=== PATIENT | male | born 1965 | race Caucasian/White ===

== ENCOUNTER 2019-02-05 18:46 | Inpatient (IN) | payer MEDICARE, OTHER ==
[~2019-02-05] VITALS: Ht 162.6 cm; Wt 72.1 kg
--- NOTE | 2019-02-05 18:57 | NUR ---
Note [email or web address] in EDM - 02/05/19 at 2108 by STEPHEN CAME TO THE ER C/O OF CHILLS x 2 DAYS, "I FEEL SICK, I WANT TO KILL MYSELF" +SI/HI. STATES HE WANTED TO GET AWAY FROM THE FACILITY HE STAYS AT. NO MEDICAL COMPLAINTS AT THIS TIME. NO ACUTE DISTRESS NOTED. SUICIDE PRECAUTIONS IMPLEMENTED, BELONGINGS AT NURSE STATION, SITTER AT BEDSIDE. READY FOR EVAL.
--- NOTE | 2019-02-05 18:58 | NUR ---
KENA, FROM [facility], HEARING VOICES, +SI, -HI, "I WANT TO RUN INTO TRAFFIC" ON 5150 HOLD. STATES HE WANTED TO GET AWAY FROM THE FACILITY HE STAYS AT. NO MEDICAL COMPLAINTS AT THIS TIME. NO ACUTE DISTRESS NOTED. SUICIDE PRECAUTIONS IMPLEMENTED, BELONGINGS AT NURSE STATION, SITTER AT BEDSIDE. READY FOR EVAL.
[2019-02-05 19:13] LABS: BASOPHILS # (AUTO) 0.1 /CMM (0.0-0.2); BASOPHILS % (AUTO) 0.8 % (0.0-2.0); HEMATOCRIT 35 % (39-51); LYMPHOCYTES # (AUTO) 2.3 /CMM (0.8-4.8); LYMPHOCYTES % (AUTO) 36.7 % (20.0-44.0); MEAN CORPUSCULAR HGB CONC 34 g/dl (31.0-36.0); MEAN CORPUSCULAR VOLUME 88 fL (80-96); MONOCYTES # (AUTO) 0.4 /CMM (0.1-1.30); MONOCYTES % (AUTO) 6.4 % (2.0-12.0); NEUTROPHILS # (AUTO) 3.3 /CMM (1.8-8.9); NEUTROPHILS % (AUTO) 52.1 % (43.0-81.0); PLATELET COUNT (AUTO) 196 /CMM (150-450); RED BLOOD CELL COUNT(AUTO) 3.98 MIL/uL (4.5-6.0); WHITE BLOOD COUNT (AUTO) 6.3 K/uL (4.3-11.0)
[2019-02-05 19:26] LABS: ALANINE AMINOTRANSFERASE 18 U/L (12-78); ALBUMIN 3.7 g/dL (3.4-5.0); ALCOHOL, BLOOD < 3 mg/dL (0-0); ALKALINE PHOSPHATASE 49 U/L (46-116); ASPARTATE AMINOTRANSFERASE 17 U/L (15-37); BILIRUBIN,DIRECT 0.1 mg/dL (0.0-0.2); BILIRUBIN,TOTAL 0.3 mg/dL (0.2-1.0); CALCIUM, SERUM 8.3 mg/dL (8.5-10.1); CARBON DIOXIDE 27 mmol/L (21-32); CHLORIDE 91 mmol/L (98-107); CREATININE 0.8 mg/dL (0.6-1.3); GLUCOSE 110 mg/dL (74-106); POTASSIUM 3.8 mmol/L (3.5-5.1); SALICYLATE 3.9 mg/dL (2.8-20.0); SODIUM SERUM 126 mmol/L (136-145); TOTAL PROTEIN, SERUM 6.6 g/dL (6.4-8.2); UREA NITROGEN, BLOOD 10 mg/dL (7-18)
[2019-02-05 19:34] LABS: ACETAMINOPHEN < 2 ug/ml (10-30)
[2019-02-05 19:44] LABS: APPEARANCE,URINE Clear (CLEAR); BILIRUBIN,URINE Negative (NEGATIVE); BLOOD, URINE Negative Ery/uL (NEGATIVE); COLOR,URINE Yellow (YELLOW); KETONES,URINE Trace (NEGATIVE); LEUKOCYTE ESTERASE ,URINE Negative (NEGATIVE); NITRITE, URINE Negative (NEGATIVE); PH,URINE 7.5 (5.0-8.0); PROTEIN,URINE Negative (NEGATIVE); UGLUCOSE Negative (NEGATIVE); UROBILINOGEN,URINE 0.2 EU/dL (0.2)
--- NOTE | 2019-02-05 20:24 | NUR ---
Patient is resting comfortably in bed with eyes closed. Easily aroused. VSS
[2019-02-05 20:30] VITALS: BP 137/87
--- NOTE | 2019-02-05 20:47 | NUR ---
REPORT GIVEN TO JEFRY ZHANG FOR 216B
--- NOTE | 2019-02-05 20:51 | NUR ---
PT TRANSFERRED TO UNIT VIA WC
--- NOTE | 2019-02-05 21:00 | NUR ---
GPS ADMISSION NOTE, RECEIVED PATIENT FROM [facility] PATIENT ARRIVED ON THIS UNIT AT 2100 VIA STRETCHER WITH 2 EMT ESCORTS. PATIENT ADMITTED ON A 5150 HOLD FOR DTS AND GD. PER HOLD PATIENT IS CONFUSED, PARANOID, AND HAVING DELUSIONAL THOUGHTS. PATIENT REPORTED COMMAND AUDITORY HALLUCINATION TELLING HIM TO HURT HIMSELF. PATIENT STATED, " I AM SAD RIGHT NOW, AND I'M HEARING VOICES TELLING ME JUST TO KILL MYSELF. I ALSO HEAR WITCH CRAFT IN THE HALLWAY ". PATIENT IS UNABLE TO CONTRACT FOR SAFETY AT THIS TIME. THE 5150 WAS REVIEWED AND THE DOCUMENTATION IN THE 5150 HOLD APPEARS TO REFLECT THE PRESENTATION OF THE PATIENT. UPON FACE TO FACE ASSESSMENT PATIENT IS NOTED TO BEING ANXIOUS, DISHEVELED, DISORGANIZED, DEMANDING, COOPERATIVE, PARANOID, CONFUSED, AND NEEDS REDIRECTION. PATIENT IS CURRENTLY LYING IN BED AWAKE, HAS NO S/S OR COMPLAINTS OF PAIN. PATIENT IS DISPLAYING NO S/S OF APPARENT DISTRESS. PATIENT BREATHING IS UNLABORED WITH EQUAL RISE AND FALL OF THE CHEST. PATIENT IS ALERT AND ORIENTATED X 2-3 ON ROOM AIR. PATIENT ASSISTED WITH TURING AND REPOSITIONING Q2HR AND PRN FOR COMFORT AND CIRCULATION. PATIENT HAS NO NEEDS AT THIS TIME. PATIENT DENIES SUICIDE IDEATIONS AND HOMICIDAL IDEATIONS AT THIS TIME. PATIENT SIGNED ALL PAPER WORK. PATIENT ADVISED OF HIS HOLD AND PATIENT RIGHTS BOOKLET GIVEN. PATIENT IS UNDER THE PSYCHIATRIC CARE OF DR. MILLER AND THE MEDICAL CARE OF DR BOND. PATIENT BELONGINGS WERE INVENTORIED AND CHECKED FOR CONTRABAND. ALL CONTRABAND REMOVED AND STORED IN PATIENT HALLWAY LOCKER. PATIENT ADVANCED DIRECTIVES PREFERENCE, IMMUNIZATIONS QUESTIONER, NECESSARY PAPERWORK COMPLETED. PATIENT SKIN ASSESSMENT COMPLETED. PATIENT ORIENTATED TO ROOM, FLOOR, AND STAFF WITH ALL QUESTIONS ANSWERED. PATIENT EDUCATED ON THE USE OF THE CALL ESTRADA. PATIENT BED SIDE RAILS ARE UP X 2 FOR SAFETY. PATIENT BED IS LOCKED, LOW AND I WILL CONTINUE TO MONITOR THIS PATIENT Q 15 MIN WITH THE HELP OF STAFF TO MAINTAIN SAFETY.
--- NOTE | 2019-02-05 21:14 | NUR ---
GPS RN NOTE, PERFORMED ACCU CHECK ON PATIENT WITH A BLOOD SUGAR WITH A BLOOD SUGAR RESULT OF 102. WILL CONTINUE TO MONITOR THIS PATIENT.
[2019-02-05] MEDS ORDERED: GABA-534 PO (21:27)
[2019-02-05] MEDS ORDERED: METF-440 PO (21:28)
[2019-02-05] MEDS ORDERED: DOCU100C36 PO (21:29)
[2019-02-05] MEDS ORDERED: HYDR-4384 PO (21:29)
[2019-02-05] MEDS ORDERED: MAG HYDROX/AL HYDROX/SIMETH 30 ML UDC PO PRN (21:30)
[2019-02-05] MEDS ORDERED: BLOOD SUGAR DIAGNOSTIC 1 EACH STRIP IN ONE (21:30)
[2019-02-05] MEDS ORDERED: MAGNESIUM HYDROXIDE 30 ML UDC PO PRN (21:30)
[2019-02-05] MEDS ORDERED: BENZ1TAB7 PO (21:31)
[2019-02-05] MEDS ORDERED: MELA3TAB PO (21:32)
[2019-02-05] MEDS: LORAZEPAM 0.5 MG TABLET PO PRN (22:16)
--- NOTE | 2019-02-05 22:16 | NUR ---
GPS RN NOTE, PATIENT HAS A COMPLAINT OF FEELING ANXIOUS AND IS REQUESTING ATIVAN AT THIS TIME. PATIENT VITAL SIGNS ARE STABLE. GAVE ATIVAN 0.5MG PO Q6HR PRN ORDERED. WILL REASSESS FOR ANXIETY AND I WILL CONTINUE TO MONITOR THIS PATIENT.
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
[2019-02-05] MEDS: TEMAZEPAM 7.5 MG CAPSULE PO PRN (23:43)
[2019-02-05] MEDS: ACETAMINOPHEN 325 MG TABLET PO PRN (23:43)
--- NOTE | 2019-02-05 23:43 | NUR ---
GPS RN NOTE, PATIENT HAS A COMPLAINT OF RIGHT KNEE PAIN AT 3 OUT OF 10 ON THE PAIN SCALE AND IS REQUESTING TYLENOL AT THIS TIME. PATIENT VITAL SIGNS ARE STABLE. GAVE TYLENOL 650 MG PO Q6HR PRN ORDERED. WILL REASSESS PAIN AND I WILL CONTINUE TO MONITOR THIS PATIENT.
--- NOTE | 2019-02-05 23:44 | NUR ---
GPS RN NOTE, PATIENT HAS A COMPLAINT OF NOT BEING ABLE TO SLEEP AND IS REQUESTING RESTORIL AT THIS TIME. PATIENT VITAL SIGNS ARE STABLE. GAVE RESTORIL 7.5MG 1 CAP PO HS PRN ORDERED. WILL REASSESS FOR INSOMNIA AND I WILL CONTINUE TO MONITOR THIS PATIENT.
[2019-02-06 00:03] LABS: URINE SODIUM, RANDOM 41 mmol/l (40-220)
[2019-02-06 00:15] LABS: OSMOLALITY,SERUM 260 mOS/kg (278-305)
[2019-02-06] MEDS ORDERED: HOME MED MISCELLANEOUS XX SCH (02:00)
[2019-02-06] MEDS: HYDROCODONE/APAP 5/325MG 1 EACH TABLET PO PRN ×4 (03:56→23:07)
--- NOTE | 2019-02-06 03:56 | NUR ---
GPS RN NOTE, PATIENT HAS A COMPLAINT OF LOWER BACK PAIN AT 7 OUT 10 ON THE PAIN SCALE AND IS REQUESTING NORCO AT THIS TIME. PATIENT VITAL SIGNS ARE STABLE. GAVE NORCO 5-325 1 TAB PO Q4HR PRN ORDERED. WILL REASSESS FOR PAIN AND I WILL CONTINUE TO MONITOR THIS PATIENT.
[2019-02-06 07:33] LABS: CHOLESTEROL 174 mg/dL (<200); HDL CHOLESTEROL 37 mg/dL (40-60); LDL 121 mg/dL (0-99); TRIGLYCERIDES 130 mg/dL (30-150)
[2019-02-06 07:40] LABS: CREATININE 0.8 mg/dL (0.6-1.3)
[2019-02-06 08:00] VITALS: BP 136/76
[2019-02-06] MEDS: METFORMIN 500 MG TABLET PO SCH ×2 (08:57→17:33)
[2019-02-06] MEDS: DOCUSATE SODIUM 100 MG CAPSULE PO SCH ×2 (08:57→17:33)
[2019-02-06] MEDS: NICOTINE PATCH (21MG) 21 MG PATCH.TD24 TD SCH (08:57)
[2019-02-06] MEDS: GABAPENTIN 300 MG CAPSULE PO SCH ×3 (08:57→17:33)
[2019-02-06] MEDS: LORAZEPAM 0.5 MG TABLET PO PRN ×2 (08:57→15:07)
--- NOTE | 2019-02-06 08:59 | NUR ---
RN NOTE: PATIENT STATES FEELING ANXIOUS. PRN ATIVAN GIVEN.
[2019-02-06] MEDS ORDERED: TDAP [DIPH/PERTUSSIS/TET] 0.5 ML VIAL IM ONE (09:00)
--- NOTE | 2019-02-06 10:37 | NUR ---
RN NOTE: PATIENT COMPLAINING OF 7/10 BACK PAIN. PRN NORCO GIVEN.
--- NOTE | 2019-02-06 11:01 | NUR ---
SW contacted [facility] Address: [address] [place] [address] and spoke with Pepito, primary care coordinator who stated pt is able to return once stable for discharge.
[2019-02-06 12:10] LABS: CALCIUM, SERUM 8.6 mg/dL (8.5-10.1); CREATININE 0.8 mg/dL (0.6-1.3); MAGNESIUM 1.8 mg/dL (1.8-2.4); PHOSPHORUS 2.9 mg/dL (2.5-4.9); POTASSIUM 4.2 mmol/L (3.5-5.1)
[2019-02-06 12:17] LABS: THYROID STIMULATING HORMONE 1.69 uIU/mL (0.358-3.74); URIC ACID 3.1 mg/dL (2.6-7.2)
--- NOTE | 2019-02-06 15:08 | NUR ---
RN NOTE: PATIENT COMPLAINING OF ANXIETY. PRN ATIVAN GIVEN.
--- NOTE | 2019-02-06 15:45 | NUR ---
GROUP NOTE: SW prompted pt to attend group on 02/06/19 at 2:30pm discussing conflict resolution techniques for while they are in the hospital and after discharge, but pt unable to participate in group.
[2019-02-06 16:00] VITALS: BP 133/78
[2019-02-06] MEDS: OXCARBAZEPINE 150 MG TABLET PO SCH (17:32)
[2019-02-06] MEDS: risperiDONE 1 MG TABLET PO SCH (17:33)
[2019-02-06 20:28] VITALS: BP 147/87
--- NOTE | 2019-02-06 21:00 | NUR ---
RN GPS NOTES PATIENT REQUESTED FOR SLEEPING MEDICATION DUE TO HAVING A HARD TIME SLEEP. RESTORIL 7.5MG PO GIVEN. VSS. WILL CONTINUE TO MONITOR.
[2019-02-06] MEDS: TEMAZEPAM 7.5 MG CAPSULE PO PRN (21:01)
--- NOTE | 2019-02-06 23:07 | NUR ---
RN GPS NOTES PATIENT REQUESTED FOR NORCO DUE TO A 7/10 ACHING BACK PAIN. NORCO 5-325MG PO GIVEN. WILL CONTINUE TO MONITOR.
[2019-02-07] MEDS: LORAZEPAM 0.5 MG TABLET PO PRN ×2 (02:43→13:46)
--- NOTE | 2019-02-07 02:43 | NUR ---
RN GPS NOTES PATIENT REQUESTED FOR ATIVAN DUE TO FEELING RESTLESS AND UNABLE TO FALL ASLEEP. ATIVAN 0.5MG PO GIVEN. VSS. WILL CONTINUE TO MONITOR.
[2019-02-07] MEDS: HYDROCODONE/APAP 5/325MG 1 EACH TABLET PO PRN ×4 (05:58→22:01)
--- NOTE | 2019-02-07 05:58 | NUR ---
RN GPS NOTES PATIENT REQUESTED FOR NORCO DUE TO A 7/10 ACHING BACK PAIN. NORCO 5-325MG PO GIVEN. WILL CONTINUE TO MONITOR.
[2019-02-07 08:00] VITALS: BP 105/64
--- NOTE | 2019-02-07 09:37 | NUR ---
INITIAL DISCHARGE PLAN: Pt wishes to return to [facility]. SW contacted [facility] Address: [address] [place] [address] and spoke with Pepito educational coordinator who stated pt is able to return once stable for discharge. SOHAM will help form a safe and proper discharge in collaboration with .
[2019-02-07] MEDS: risperiDONE 1 MG TABLET PO SCH ×2 (09:48→17:42)
[2019-02-07] MEDS: OXCARBAZEPINE 150 MG TABLET PO SCH ×3 (09:48→17:43)
[2019-02-07] MEDS: GABAPENTIN 300 MG CAPSULE PO SCH ×3 (09:48→17:42)
[2019-02-07] MEDS: METFORMIN 500 MG TABLET PO SCH ×2 (09:48→17:43)
[2019-02-07] MEDS: DOCUSATE SODIUM 100 MG CAPSULE PO SCH ×2 (09:48→17:42)
[2019-02-07] MEDS: NICOTINE PATCH (21MG) 21 MG PATCH.TD24 TD SCH (09:48)
--- NOTE | 2019-02-07 11:19 | NUR ---
RN NOTE:PATIENT C/O PIAN MARY KNEE 02/10 MEDICATED WITH NORCO 5/325.WILL CONTINUE TO MONITOR .
[2019-02-07 16:00] VITALS: BP_SYST 120; BP_SYST 126; BP_DIAS 56; BP_DIAS 75
--- NOTE | 2019-02-07 16:27 | NUR ---
GROUP NOTE: SW prompted pt to attend group on 02/07/19 at 2:30pm discussing goal setting for while they are in the hospital and after discharge, but pt unable to participate in group.
--- NOTE | 2019-02-07 17:36 | NUR ---
RN NOTE:PATIENT C/O PIAN MARY KNEE 02/10 MEDICATED WITH NORCO 5/325.WILL CONTINUE TO MONITOR .
[2019-02-07 20:21] VITALS: BP 127/76
[2019-02-07] MEDS: TEMAZEPAM 7.5 MG CAPSULE PO PRN (20:24)
--- NOTE | 2019-02-07 20:26 | NUR ---
REQUESTED FOR HIS SLEEPING PILL, TEMAZEPAM 7.5 MG CAP 1 PO GIVEN.
--- NOTE | 2019-02-07 20:55 | NUR ---
BREANNE REQUESTED HIS MOTTLE LAY UP OPERATOR TO THROW AWAY HIS OWN PERSONAL UNDERWEAR, (1) PIECE.
--- NOTE | 2019-02-07 21:02 | NUR ---
TALKING, RESPONDING TO INTERNAL STIMULI, LYING IN BED.
[2019-02-07] MEDS: ATORVASTATIN 10 MG TABLET PO SCH (21:45)
--- NOTE | 2019-02-07 22:02 | NUR ---
C/O PAIN RIGHT KNEE, 7/10 ON PAIN SCALE, NORCO TAB 5/325 MG TAB 1 PO GIVEN.
--- NOTE | 2019-02-07 22:18 | NUR ---
2218: AWAKE, FEELING BETTER AFTER TAKING NORCO FOR HIS PAIN ON THE RIGHT KNEE.
--- NOTE | 2019-02-08 01:34 | NUR ---
ASLEEP, CALM AND QUIET.
[2019-02-08] MEDS: LORAZEPAM 0.5 MG TABLET PO PRN ×3 (03:31→19:20)
--- NOTE | 2019-02-08 03:32 | NUR ---
AWAKE AT THIS TIME REQUESTED FOR ATIVAN, 0.5 MG TAB PO GIVEN FOR ANXIETY.
--- NOTE | 2019-02-08 03:33 | NUR ---
REQUESTED FOR SANDWICH AT THIS TIME. NO UNTOWARD BEHAVIOR, CALM, QUIET.
[2019-02-08] MEDS: HYDROCODONE/APAP 5/325MG 1 EACH TABLET PO PRN ×4 (05:22→20:42)
[2019-02-08 08:00] VITALS: BP 124/68
[2019-02-08 08:12] LABS: BASOPHILS % (AUTO) 0.6 % (0.0-2.0); EOSINOPHILS % (AUTO) 4.4 % (0.0-6.0); HEMATOCRIT 40 % (39-51); HEMOGLOBIN 13.4 g/dL (13.5-17.5); LYMPHOCYTES # (AUTO) 2.1 /CMM (0.8-4.8); LYMPHOCYTES % (AUTO) 29.1 % (20.0-44.0); MEAN CORPUSCULAR HGB CONC 34 g/dl (31.0-36.0); MEAN CORPUSCULAR VOLUME 89 fL (80-96); MONOCYTES # (AUTO) 0.5 /CMM (0.1-1.30); MONOCYTES % (AUTO) 7.1 % (2.0-12.0); NEUTROPHILS # (AUTO) 4.3 /CMM (1.8-8.9); NEUTROPHILS % (AUTO) 58.8 % (43.0-81.0); PLATELET COUNT (AUTO) 226 /CMM (150-450); WHITE BLOOD COUNT (AUTO) 7.3 K/uL (4.3-11.0)
[2019-02-08] MEDS: METFORMIN 500 MG TABLET PO SCH ×2 (08:34→16:08)
[2019-02-08] MEDS: GABAPENTIN 300 MG CAPSULE PO SCH ×3 (08:34→16:08)
[2019-02-08] MEDS: risperiDONE 1 MG TABLET PO SCH (08:35)
[2019-02-08] MEDS: OXCARBAZEPINE 150 MG TABLET PO SCH ×3 (08:35→16:08)
[2019-02-08] MEDS: NICOTINE PATCH (21MG) 21 MG PATCH.TD24 TD SCH (08:36)
[2019-02-08] MEDS: DOCUSATE SODIUM 100 MG CAPSULE PO SCH ×2 (08:36→16:08)
[2019-02-08 08:45] LABS: CALCIUM, SERUM 9.2 mg/dL (8.5-10.1); CREATININE 0.7 mg/dL (0.6-1.3); MAGNESIUM 2.1 mg/dL (1.8-2.4); PHOSPHORUS 3.5 mg/dL (2.5-4.9); POTASSIUM 4.2 mmol/L (3.5-5.1)
--- NOTE | 2019-02-08 10:46 | NUR ---
RN NOTE: C/O GENERALIZED PAIN , 7/10 ON PAIN SCALE, NORCO TAB 5/325 MG TAB 1 PO GIVEN.
--- NOTE | 2019-02-08 15:22 | NUR ---
GROUP NOTE: SW prompted pt to attend group on 02/08/19 at 2:30pm discussing managing mental health by being compliant with medication for while they are in the hospital and after discharge, but pt did not attend.
[2019-02-08 16:00] VITALS: BP 136/76
[2019-02-08] MEDS: OLANZAPINE 2.5 MG TABLET PO SCH ×2 (16:08→20:41)
--- NOTE | 2019-02-08 16:15 | NUR ---
RN NOTE: C/O GENERALIZED PAIN , 7/10 ON PAIN SCALE, NORCO TAB 5/325 MG TAB 1 PO GIVEN.
[2019-02-08 20:50] VITALS: BP 122/72
[2019-02-08] MEDS: TEMAZEPAM 7.5 MG CAPSULE PO PRN (20:54)
[2019-02-08] MEDS: ATORVASTATIN 10 MG TABLET PO SCH (21:14)
[2019-02-09] MEDS: HYDROCODONE/APAP 5/325MG 1 EACH TABLET PO PRN ×4 (05:23→20:19)
[2019-02-09 08:00] VITALS: BP 124/79
[2019-02-09] MEDS: DOCUSATE SODIUM 100 MG CAPSULE PO SCH ×2 (08:37→16:06)
[2019-02-09] MEDS: NICOTINE PATCH (21MG) 21 MG PATCH.TD24 TD SCH ×2 (08:37→08:42)
[2019-02-09] MEDS: OLANZAPINE 2.5 MG TABLET PO SCH ×4 (08:37→22:00)
[2019-02-09] MEDS: OXCARBAZEPINE 150 MG TABLET PO SCH ×3 (08:37→16:06)
[2019-02-09] MEDS: METFORMIN 500 MG TABLET PO SCH ×2 (08:37→16:05)
[2019-02-09] MEDS: GABAPENTIN 300 MG CAPSULE PO SCH ×3 (08:37→16:06)
[2019-02-09] MEDS: LORAZEPAM 0.5 MG TABLET PO PRN ×2 (08:44→16:06)
[2019-02-09 16:00] VITALS: BP 138/82
[2019-02-09 20:27] VITALS: BP 153/85
[2019-02-09] MEDS: ATORVASTATIN 10 MG TABLET PO SCH (22:00)
[2019-02-10] MEDS: LORAZEPAM 0.5 MG TABLET PO PRN ×3 (01:45→16:32)
[2019-02-10 08:00] VITALS: BP 123/62
[2019-02-10] MEDS: NICOTINE PATCH (21MG) 21 MG PATCH.TD24 TD SCH ×2 (08:30→08:34)
[2019-02-10] MEDS: GABAPENTIN 300 MG CAPSULE PO SCH ×3 (08:30→16:31)
[2019-02-10] MEDS: OXCARBAZEPINE 150 MG TABLET PO SCH ×3 (08:30→16:31)
[2019-02-10] MEDS: OLANZAPINE 2.5 MG TABLET PO SCH ×4 (08:30→21:32)
[2019-02-10] MEDS: DOCUSATE SODIUM 100 MG CAPSULE PO SCH ×2 (08:30→16:31)
[2019-02-10] MEDS: METFORMIN 500 MG TABLET PO SCH ×2 (08:30→16:32)
[2019-02-10] MEDS: HYDROCODONE/APAP 5/325MG 1 EACH TABLET PO PRN ×4 (08:31→16:31)
[2019-02-10 16:00] VITALS: BP 134/75
[2019-02-10 20:00] VITALS: BP 145/96
[2019-02-10] MEDS: ATORVASTATIN 10 MG TABLET PO SCH (21:32)
[2019-02-10] MEDS: TEMAZEPAM 7.5 MG CAPSULE PO PRN (21:33)
[2019-02-11] MEDS: HYDROCODONE/APAP 5/325MG 1 EACH TABLET PO PRN ×4 (06:33→23:50)
[2019-02-11 08:00] VITALS: BP 117/70
[2019-02-11] MEDS: NICOTINE PATCH (21MG) 21 MG PATCH.TD24 TD SCH (09:00)
[2019-02-11] MEDS: GABAPENTIN 300 MG CAPSULE PO SCH ×3 (09:08→16:54)
[2019-02-11] MEDS: METFORMIN 500 MG TABLET PO SCH ×2 (09:08→16:54)
[2019-02-11] MEDS: OLANZAPINE 2.5 MG TABLET PO SCH ×3 (09:08→16:54)
[2019-02-11] MEDS: DOCUSATE SODIUM 100 MG CAPSULE PO SCH ×2 (09:08→16:54)
[2019-02-11] MEDS: LORAZEPAM 0.5 MG TABLET PO PRN ×3 (09:09→22:20)
[2019-02-11] MEDS: OXCARBAZEPINE 150 MG TABLET PO SCH ×3 (09:09→16:54)
--- NOTE | 2019-02-11 09:10 | NUR ---
GPS/RN-NOTES PATIENT REQUESTING ATIVAN TOGETHER WITH THE MORNING MEDICATIONS. STATED" I NEEDS ATIVAN TO CALM ME DOWN". ATIVAN 0.5MG P.O GIVEN PRN ORDER. WILL CONT. MONITORING FOR SAFETY AND BEHAVIOR.
--- NOTE | 2019-02-11 10:10 | NUR ---
GPS/RN-NOTES PATIENT LAYING IN BED ,CALM NO ACUTE DISTRESS NOTED. NOTED PATIENT RESPONDING WITH INTERNAL STIMULI.
--- NOTE | 2019-02-11 12:14 | NUR ---
GPS/RN-NOTES PATIENT C/O 810 BOTH LEGS PAIN AND REQUESTING FOR NORCO. NORCO 5/325MG 1 TAB. P-.O GIVEN PRN ORDER. WILL CONT. MONITORING FOR SAFETY.
--- NOTE | 2019-02-11 15:49 | NUR ---
GPS/RN-NOTES PATIENT REQUESTING ATIVAN,STATED" I NEED IT I'M ANXIOUS". ATIVAN 0.5MG P.O GIVEN PRN ORDER. WILL CONT. MONITORING FOR SAFETY AND BEHAVIOR.
[2019-02-11 16:00] VITALS: BP 147/75
[2019-02-11] MEDS ORDERED: OLANZAPINE 2.5 MG TABLET PO SCH ×3 (17:00→22:00)
[2019-02-11 20:15] VITALS: BP 136/81
[2019-02-11] MEDS: ATORVASTATIN 10 MG TABLET PO SCH (21:18)
[2019-02-11] MEDS: TEMAZEPAM 7.5 MG CAPSULE PO PRN (21:19)
[2019-02-12 06:38] LABS: BASOPHILS % (AUTO) 0.9 % (0.0-2.0); EOSINOPHILS % (AUTO) 7.1 % (0.0-6.0); HEMATOCRIT 38 % (39-51); LYMPHOCYTES # (AUTO) 2.1 /CMM (0.8-4.8); LYMPHOCYTES % (AUTO) 42.3 % (20.0-44.0); MEAN CORPUSCULAR HGB CONC 35 g/dl (31.0-36.0); MEAN CORPUSCULAR VOLUME 88 fL (80-96); MONOCYTES # (AUTO) 0.5 /CMM (0.1-1.30); MONOCYTES % (AUTO) 9.4 % (2.0-12.0); NEUTROPHILS % (AUTO) 40.3 % (43.0-81.0); PLATELET COUNT (AUTO) 264 /CMM (150-450); RED BLOOD CELL COUNT(AUTO) 4.28 MIL/uL (4.5-6.0); WHITE BLOOD COUNT (AUTO) 5.1 K/uL (4.3-11.0)
[2019-02-12 06:44] LABS: CALCIUM, SERUM 8.8 mg/dL (8.5-10.1); CREATININE 0.7 mg/dL (0.6-1.3); MAGNESIUM 1.8 mg/dL (1.8-2.4); POTASSIUM 4.4 mmol/L (3.5-5.1)
[2019-02-12 08:00] VITALS: BP 120/69
[2019-02-12] MEDS: OXCARBAZEPINE 150 MG TABLET PO SCH ×3 (09:43→16:13)
[2019-02-12] MEDS: METFORMIN 500 MG TABLET PO SCH ×2 (09:43→16:13)
[2019-02-12] MEDS: OLANZAPINE 2.5 MG TABLET PO SCH ×3 (09:43→16:13)
[2019-02-12] MEDS: GABAPENTIN 300 MG CAPSULE PO SCH ×3 (09:43→16:13)
[2019-02-12] MEDS: DOCUSATE SODIUM 100 MG CAPSULE PO SCH ×2 (09:43→16:13)
[2019-02-12] MEDS: NICOTINE PATCH (21MG) 21 MG PATCH.TD24 TD SCH (09:44)
[2019-02-12] MEDS: HYDROCODONE/APAP 5/325MG 1 EACH TABLET PO PRN ×3 (09:47→19:54)
--- NOTE | 2019-02-12 10:30 | NUR ---
GPS/RN-NOTES PATIENT LAYING IN BED ,CALM NO ACUTE DISTRESS NOTED.
[2019-02-12] MEDS: LORAZEPAM 0.5 MG TABLET PO PRN ×2 (10:43→17:43)
--- NOTE | 2019-02-12 10:45 | NUR ---
GPS/RN-NOTES PATIENT REQUESTING FOR ATIVAN .ATIVAN 0.5MG P.O GIVEN PRN ORDER. WILL CONT. MONITORING FOR SAFETY AND BEHAVIOR.
--- NOTE | 2019-02-12 14:09 | NUR ---
GPS/RN-NOTES PATIENT C/O 02/10 RIGHT KNEE PAIN AND REQUESTING FOR NORCO. NORCO 5/325MG 1 TAB. P-.O GIVEN PRN ORDER. WILL CONT. MONITORING FOR SAFETY.
--- NOTE | 2019-02-12 15:10 | NUR ---
GPS/RN-NOTES PATIENT LAYING IN BED CALM,NO ACUTE DISTRESS NOTED. DENIES ANY DISCOMFORT AT THIS TIME.
[2019-02-12 16:00] VITALS: BP 127/81
--- NOTE | 2019-02-12 17:47 | NUR ---
GPS/RN-NOTES PATIENT STATED" I NEED ATIVAN I'M ANXIOUS". ATIVAN 0.5MG P.O GIVEN PRN ORDER. WILL CONT. MONITORING FOR SAFETY AND BEHAVIOR.
--- NOTE | 2019-02-12 19:30 | NUR ---
GPS RN NOTE, RECEIVED PATIENT AWAKE AND IN BED, NO S/S OR COMPLAINTS OF PAIN AT THIS TIME. PATIENT IS DISPLAYING NO S/S OF APPARENT DISTRESS AT THIS TIME. PATIENT BREATHING IS UNLABORED WITH EQUAL RISE AND FALL OF THE CHEST. PATIENT IS ALERT AND ORIENTED X 3 ON ROOM AIR WITH A SPO2 OF 96 %. PATIENT IS MED COMPLAINT, DEMANDING, ANXIOUS, COOPERATIVE, AND NEEDS REORIENTATION. PATIENT DENIES SUICIDE AND HOMICIDAL IDEATIONS AT THIS TIME. PATIENT ASSISTED WITH TURNING AND REPOSITIONING Q2HR AND PRN FOR COMFORT AND CIRCULATION. PATIENT HAS NO NEEDS AT THIS TIME. PATIENT EDUCATED ON THE USE OF THE CALL ESTRADA. PATIENT BED SIDE RAILS ARE UP X 2 FOR SAFETY, BED IS LOCKED, AND LOW WILL CONTINUE TO MONITOR AND MAINTAIN SAFETY.
--- NOTE | 2019-02-12 19:54 | NUR ---
GPS RN NOTE, PATIENT HAS A COMPLAINT OF GENERALIZED PAIN AT 7 OUT 10 ON THE PAIN SCALE AND IS REQUESTING NORCO AT THIS PATIENT. PATIENT VITAL ARE STABLE. GAVE NORCO 5-325 1 TAB PO Q4HR PRN ORDERED. WILL REASSESS FOR PAIN AND I WILL CONTINUE TO MONITOR THIS PATIENT.
[2019-02-12 20:02] VITALS: BP 141/70
[2019-02-12] MEDS: ATORVASTATIN 10 MG TABLET PO SCH (21:26)
[2019-02-12] MEDS ORDERED: OLANZAPINE 2.5 MG TABLET PO SCH (22:00)
[2019-02-12] MEDS: TEMAZEPAM 7.5 MG CAPSULE PO PRN (23:02)
[2019-02-13 08:00] VITALS: BP 124/67
[2019-02-13] MEDS: HYDROCODONE/APAP 5/325MG 1 EACH TABLET PO PRN ×4 (08:39→23:07)
[2019-02-13] MEDS: OXCARBAZEPINE 150 MG TABLET PO SCH ×3 (08:40→17:54)
[2019-02-13] MEDS: DOCUSATE SODIUM 100 MG CAPSULE PO SCH ×2 (08:40→17:54)
[2019-02-13] MEDS: METFORMIN 500 MG TABLET PO SCH ×2 (08:40→17:54)
[2019-02-13] MEDS: GABAPENTIN 300 MG CAPSULE PO SCH ×3 (08:40→17:54)
[2019-02-13] MEDS: OLANZAPINE 2.5 MG TABLET PO SCH ×3 (08:41→17:54)
[2019-02-13] MEDS: NICOTINE PATCH (21MG) 21 MG PATCH.TD24 TD SCH (08:41)
[2019-02-13] MEDS: LORAZEPAM 0.5 MG TABLET PO PRN ×2 (11:03→21:38)
[2019-02-13 16:00] VITALS: BP 164/94
[2019-02-13] MEDS: ATORVASTATIN 10 MG TABLET PO SCH (21:12)
[2019-02-13 21:44] VITALS: BP 151/81
[2019-02-13] MEDS ORDERED: OLANZAPINE 2.5 MG TABLET PO SCH (22:00)
[2019-02-13] MEDS: TEMAZEPAM 7.5 MG CAPSULE PO PRN (22:03)
[2019-02-14] MEDS: HYDROCODONE/APAP 5/325MG 1 EACH TABLET PO PRN ×2 (08:47→15:42)
--- NOTE | 2019-02-14 08:47 | NUR ---
MEDICATED FOR BACK PAIN WITH NORCO.
[2019-02-14] MEDS: GABAPENTIN 300 MG CAPSULE PO SCH ×3 (08:48→18:12)
[2019-02-14] MEDS: METFORMIN 500 MG TABLET PO SCH ×2 (08:48→18:12)
[2019-02-14] MEDS: OXCARBAZEPINE 150 MG TABLET PO SCH ×3 (08:48→18:12)
[2019-02-14] MEDS: OLANZAPINE 2.5 MG TABLET PO SCH ×3 (08:48→18:12)
[2019-02-14] MEDS: DOCUSATE SODIUM 100 MG CAPSULE PO SCH ×2 (08:48→18:12)
[2019-02-14] MEDS: NICOTINE PATCH (21MG) 21 MG PATCH.TD24 TD SCH (08:49)
[2019-02-14 09:13] VITALS: BP 106/56
[2019-02-14] MEDS: LORAZEPAM 0.5 MG TABLET PO PRN ×2 (12:18→20:08)
--- NOTE | 2019-02-14 12:22 | NUR ---
MEDICATED FOR NERVES WITH ATIVAN.
--- NOTE | 2019-02-14 14:24 | NUR ---
GROUP NOTE Goal: Patient will attend group being held today from 11AM-11:45AM in the activities room and participate and/or actively listen to peers and be respectful. Intervention: SW invited patient to attend group session with peers regarding their support system. SW respected patient�s self-determination and will continue to invite patient to group. Response: Patient declined to participate in today�s group manager social media session. Plan: Patient will be invited to attend next manager social media group session held.
[2019-02-14 16:00] VITALS: BP 151/84
--- NOTE | 2019-02-14 16:01 | NUR ---
MEDICATED FOR BACK PAIN WITH NORCO.
[2019-02-14 20:20] VITALS: BP 133/74
[2019-02-14] MEDS: ATORVASTATIN 10 MG TABLET PO SCH (21:29)
[2019-02-14] MEDS: OLANZAPINE 10 MG TABLET PO SCH (21:29)
[2019-02-14] MEDS ORDERED: OLANZAPINE 2.5 MG TABLET PO SCH (22:00)
[2019-02-14] MEDS: TEMAZEPAM 7.5 MG CAPSULE PO PRN (22:43)
[2019-02-15] MEDS: HYDROCODONE/APAP 5/325MG 1 EACH TABLET PO PRN ×4 (01:18→18:46)
[2019-02-15 07:19] LABS: BASOPHILS # (AUTO) 0.1 /CMM (0.0-0.2); BASOPHILS % (AUTO) 0.8 % (0.0-2.0); CALCIUM, SERUM 8.5 mg/dL (8.5-10.1); CREATININE 0.7 mg/dL (0.6-1.3); EOSINOPHILS % (AUTO) 8.3 % (0.0-6.0); HEMATOCRIT 37 % (39-51); HEMOGLOBIN 12.7 g/dL (13.5-17.5); LYMPHOCYTES # (AUTO) 2.7 /CMM (0.8-4.8); LYMPHOCYTES % (AUTO) 41.8 % (20.0-44.0); MAGNESIUM 1.7 mg/dL (1.8-2.4); MEAN CORPUSCULAR HGB CONC 34 g/dl (31.0-36.0); MEAN CORPUSCULAR VOLUME 89 fL (80-96); MONOCYTES # (AUTO) 0.6 /CMM (0.1-1.30); NEUTROPHILS # (AUTO) 2.6 /CMM (1.8-8.9); NEUTROPHILS % (AUTO) 40.1 % (43.0-81.0); PLATELET COUNT (AUTO) 298 /CMM (150-450); POTASSIUM 4.5 mmol/L (3.5-5.1); RED BLOOD CELL COUNT(AUTO) 4.21 MIL/uL (4.5-6.0); WHITE BLOOD COUNT (AUTO) 6.4 K/uL (4.3-11.0)
[2019-02-15 08:00] VITALS: BP 100/58
[2019-02-15] MEDS: GABAPENTIN 300 MG CAPSULE PO SCH ×3 (08:39→16:09)
[2019-02-15] MEDS: DOCUSATE SODIUM 100 MG CAPSULE PO SCH ×2 (08:39→16:09)
[2019-02-15] MEDS: OXCARBAZEPINE 150 MG TABLET PO SCH ×3 (08:39→16:09)
[2019-02-15] MEDS: METFORMIN 500 MG TABLET PO SCH ×2 (08:39→16:09)
[2019-02-15] MEDS: OLANZAPINE 2.5 MG TABLET PO SCH ×3 (08:39→16:09)
--- NOTE | 2019-02-15 08:45 | NUR ---
GPS/RN-NOTES PATIENT C/O 8/10LOWER BACK PAIN AND REQUESTING FOR NORCO. NORCO 5/325MG 1 TAB. P-.O GIVEN PRN ORDER. WILL CONT. MONITORING FOR SAFETY.
[2019-02-15] MEDS: NICOTINE PATCH (21MG) 21 MG PATCH.TD24 TD SCH (09:14)
[2019-02-15] MEDS: LORAZEPAM 0.5 MG TABLET PO PRN ×2 (10:15→16:49)
--- NOTE | 2019-02-15 10:18 | NUR ---
GPS/RN-NOTES PATIENT REQUESTING ATIVAN,STATED" I NEED IT I'M VERY ANXIOUS". ATIVAN 0.5MG P.O GIVEN PRN ORDER. WILL CONT. MONITORING FOR SAFETY AND BEHAVIOR.
[2019-02-15] MEDS: MAGNESIUM CHLORIDE 64 MG TABLET.SA PO SCH (10:56)
--- NOTE | 2019-02-15 11:20 | NUR ---
GPS/RN-NOTES PATIENT SITTING IN BED CALM,NO ACUTE DISTRESS NOTED. DENIES ANY DISCOMFORT AT THIS TIME.
[2019-02-15 16:00] VITALS: BP 150/89
--- NOTE | 2019-02-15 16:50 | NUR ---
GPS/RN-NOTES PATIENT STATED" PLEASE I NEED ATIVAN I'M ANXIOUS". ATIVAN 0.5MG P.O GIVEN PRN ORDER. WILL CONT. MONITORING FOR SAFETY AND BEHAVIOR.
--- NOTE | 2019-02-15 18:00 | NUR ---
GPS/RN-NOTES PATIENT LAYING IN BED CALM,NO ACUTE DISTRESS NOTED.
--- NOTE | 2019-02-15 18:47 | NUR ---
GPS/RN-NOTES PATIENT C/O 8/ LOWER BACK PAIN AND REQUESTING FOR NORCO. NORCO 5/325MG 1 TAB. P-.O GIVEN PRN ORDER. WILL ENDORSE TO INCOMING NURSE TO CONT. MONITORING FOR EFFECTIVENESS AND SAFETY.
[2019-02-15 20:00] VITALS: BP 153/84
[2019-02-15] MEDS: OLANZAPINE 10 MG TABLET PO SCH (21:37)
[2019-02-15] MEDS: ATORVASTATIN 10 MG TABLET PO SCH (21:38)
[2019-02-15] MEDS: TEMAZEPAM 7.5 MG CAPSULE PO PRN (22:43)
[2019-02-16] MEDS: HYDROCODONE/APAP 5/325MG 1 EACH TABLET PO PRN ×4 (00:01→16:43)
[2019-02-16] MEDS: LORAZEPAM 0.5 MG TABLET PO PRN ×4 (01:16→20:39)
[2019-02-16 08:00] VITALS: BP 129/98
[2019-02-16] MEDS: DOCUSATE SODIUM 100 MG CAPSULE PO SCH ×2 (09:10→16:42)
[2019-02-16] MEDS: OLANZAPINE 2.5 MG TABLET PO SCH ×2 (09:10→13:02)
[2019-02-16] MEDS: NICOTINE PATCH (21MG) 21 MG PATCH.TD24 TD SCH (09:10)
[2019-02-16] MEDS: METFORMIN 500 MG TABLET PO SCH ×2 (09:11→16:42)
[2019-02-16] MEDS: OXCARBAZEPINE 150 MG TABLET PO SCH ×3 (09:11→16:42)
[2019-02-16] MEDS: GABAPENTIN 300 MG CAPSULE PO SCH ×3 (09:11→16:42)
[2019-02-16] MEDS: MAGNESIUM CHLORIDE 64 MG TABLET.SA PO SCH (09:14)
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
[2019-02-16] MEDS: NEOMY SULF/BACITRAC ZN/POLY 15 GM TUBE TP SCH (14:32)
[2019-02-16 16:00] VITALS: BP 128/67
[2019-02-16 20:00] VITALS: BP 134/74
[2019-02-16] MEDS: TEMAZEPAM 7.5 MG CAPSULE PO PRN (21:26)
[2019-02-16] MEDS: OLANZAPINE 10 MG TABLET PO SCH (21:26)
[2019-02-16] MEDS: ATORVASTATIN 10 MG TABLET PO SCH (21:26)
[2019-02-17] MEDS: HYDROCODONE/APAP 5/325MG 1 EACH TABLET PO PRN ×3 (01:38→15:04)
[2019-02-17 08:00] VITALS: BP 131/71
[2019-02-17] MEDS: DOCUSATE SODIUM 100 MG CAPSULE PO SCH ×2 (09:23→17:40)
[2019-02-17] MEDS: NICOTINE PATCH (21MG) 21 MG PATCH.TD24 TD SCH (09:23)
[2019-02-17] MEDS: METFORMIN 500 MG TABLET PO SCH ×2 (09:23→17:40)
[2019-02-17] MEDS: GABAPENTIN 300 MG CAPSULE PO SCH ×3 (09:23→17:40)
[2019-02-17] MEDS: OXCARBAZEPINE 150 MG TABLET PO SCH ×3 (09:23→17:39)
[2019-02-17] MEDS: NEOMY SULF/BACITRAC ZN/POLY 15 GM TUBE TP SCH (09:24)
[2019-02-17] MEDS: OLANZAPINE 2.5 MG TABLET PO SCH ×2 (09:24→13:03)
[2019-02-17] MEDS: MAGNESIUM CHLORIDE 64 MG TABLET.SA PO SCH (09:24)
[2019-02-17] MEDS: LORAZEPAM 0.5 MG TABLET PO PRN ×2 (11:38→20:07)
[2019-02-17 16:00] VITALS: BP 119/83
[2019-02-17 20:00] VITALS: BP 144/80
[2019-02-17] MEDS: OLANZAPINE 10 MG TABLET PO SCH (21:18)
[2019-02-17] MEDS: ATORVASTATIN 10 MG TABLET PO SCH (21:18)
[2019-02-17] MEDS: TEMAZEPAM 7.5 MG CAPSULE PO PRN (23:36)
[2019-02-18] MEDS: HYDROCODONE/APAP 5/325MG 1 EACH TABLET PO PRN ×3 (04:43→16:54)
[2019-02-18 08:00] VITALS: BP 125/70
[2019-02-18] MEDS: OXCARBAZEPINE 150 MG TABLET PO SCH ×3 (08:19→16:54)
[2019-02-18] MEDS: LORAZEPAM 0.5 MG TABLET PO PRN ×2 (08:19→15:24)
[2019-02-18] MEDS: DOCUSATE SODIUM 100 MG CAPSULE PO SCH ×2 (08:19→16:54)
[2019-02-18] MEDS: METFORMIN 500 MG TABLET PO SCH ×2 (08:19→16:54)
[2019-02-18] MEDS: NICOTINE PATCH (21MG) 21 MG PATCH.TD24 TD SCH (08:19)
[2019-02-18] MEDS: OLANZAPINE 2.5 MG TABLET PO SCH ×2 (08:19→12:14)
[2019-02-18] MEDS: MAGNESIUM CHLORIDE 64 MG TABLET.SA PO SCH (08:20)
[2019-02-18] MEDS: NEOMY SULF/BACITRAC ZN/POLY 15 GM TUBE TP SCH (08:28)
[2019-02-18] MEDS: GABAPENTIN 300 MG CAPSULE PO SCH ×3 (08:32→16:54)
[2019-02-18 16:00] VITALS: BP 148/89
[2019-02-18 20:00] VITALS: BP 153/70
[2019-02-18] MEDS: ATORVASTATIN 10 MG TABLET PO SCH (21:04)
[2019-02-18] MEDS: OLANZAPINE 10 MG TABLET PO SCH (21:04)
[2019-02-19] MEDS: HYDROCODONE/APAP 5/325MG 1 EACH TABLET PO PRN ×2 (00:41→08:56)
[2019-02-19 07:25] LABS: URIC ACID 4.4 mg/dL (2.6-7.2)
[2019-02-19 07:26] LABS: CALCIUM, SERUM 8.2 mg/dL (8.5-10.1); CREATININE 0.6 mg/dL (0.6-1.3); MAGNESIUM 1.8 mg/dL (1.8-2.4); PHOSPHORUS 4.4 mg/dL (2.5-4.9); POTASSIUM 4.3 mmol/L (3.5-5.1)
[2019-02-19 08:00] VITALS: BP 111/60
[2019-02-19] MEDS: DOCUSATE SODIUM 100 MG CAPSULE PO SCH (08:55)
[2019-02-19] MEDS: OLANZAPINE 2.5 MG TABLET PO SCH ×2 (08:55→12:11)
[2019-02-19] MEDS: GABAPENTIN 300 MG CAPSULE PO SCH ×2 (08:56→12:11)
[2019-02-19] MEDS: OXCARBAZEPINE 150 MG TABLET PO SCH ×2 (08:56→12:11)
--- NOTE | 2019-02-19 08:56 | NUR ---
RN NOTES ADMINISTERED NARCO 5/325 MG PO PRN FOR LOWER BACK PAIN 8/10 PER PAIN SCALE, V/S TAKEN BP-111/60, P-82, CONTINUED [id number].
[2019-02-19] MEDS: METFORMIN 500 MG TABLET PO SCH (08:57)
[2019-02-19] MEDS: NICOTINE PATCH (21MG) 21 MG PATCH.TD24 TD SCH (08:57)
[2019-02-19] MEDS: NEOMY SULF/BACITRAC ZN/POLY 15 GM TUBE TP SCH (08:59)
[2019-02-19] MEDS: LORAZEPAM 0.5 MG TABLET PO PRN (10:31)
--- NOTE | 2019-02-19 10:31 | NUR ---
RN NOTES ADMINISTERED ATIVAN 0.5 MG PO PRN FOR ANXIETY PER PATIENT REQUEST, V/S WNL. CONTINUED MONITORING.
[2019-02-19] MEDS: MAGNESIUM CHLORIDE 64 MG TABLET.SA PO SCH (10:47)
--- NOTE | 2019-02-19 10:48 | NUR ---
DISCHARGE NOTE: Pt will be discharged at 2:00pm via [facility] to [facility] Address: [address] [place] [address] . Pts has no family to notify. Pts mood is paranoid with flat affect. Pt is at baseline and responding to internal stimuli; speaking to self and responding to voices. Pt denied visual hallucinations. Pt denied suicidal/homicidal ideation. Pt will be under the care of Director Microbiology: Dr Cheng Address: [address] [facility] [address], [place] [address] [phone] and Psychiatrist: Dr. Ranjana Clark [address] [facility] [address], [place] [address] [phone]. For smoking cessation, patient was referred to the [employer] and [employer] [id number]. Pt will also participate in a telephone meeting with [employer] [phone] on Tuesday at 8:00am. The multidisciplinary exit care form was done, printed, signed, and given to the patient.
[2019-02-19] MEDS: ACETAMINOPHEN 325 MG TABLET PO PRN (13:07)
--- NOTE | 2019-02-19 13:07 | NUR ---
RN NOTES ADMINISTERED TYLENOL 650 MG PO PRN FOR LOWER BACK PAIN 11/10 CONTINUED MONITORING.
--- NOTE | 2019-02-19 15:20 | NUR ---
HAND LACER NOTES PATIENT DISCHARGE AT THIS TIME GOING BACK TO SNF. PATIENT DENIED SI/HI/AVH AT THIS TIME. MED RECONCILIATION AND DISCHARGE ORDERS REVIEWED AND EXPLAINED TO SNF MORIAH FRANCO. KAIAKO KURA [place]A MAORI VERBALIZED UNDERSTANDING. PATIENT WILL FOLLOW FACILITY PSYCHIATRIST, AND TACTICAL AIR DEFENSE CONTROLLER. BELONGING RETURNED BACK TO THE PATIENT. PATIENT STABLE V/S WNL, MED COMPLIANT, NO COMPLAINING OF PAIN. PATIENT HAS NO FAMILY TO NOTIFY DISCHARGE PLANING. PATIENT GOVERNMENT RELATIONS MANAGER BY AMBULANCE.
== END 2019-02-19 15:20 | DRG 885 ==
LOC: ER 18:56 → GPS 19:59
PROVIDERS: ADMIT Psychiatry & Neurology Psychiatry; ATTEND Nurse Practitioner Acute Care
DX: F25.0 Schizoaffective disorder, bipolar type (principal); R45.851 Suicidal ideations; E22.2 Syndrome of inappropriate secretion of antidiuretic hormone; F29 Unspecified psychosis not due to a substance or known physiological condition; E11.9 Type 2 diabetes mellitus without complications; D63.8 Anemia in other chronic diseases classified elsewhere; F32.9 Major depressive disorder, single episode, unspecified; E11.40 Type 2 diabetes mellitus with diabetic neuropathy, unspecified; E78.5 Hyperlipidemia, unspecified; F10.10 Alcohol abuse, uncomplicated; Y90.0 Blood alcohol level of less than 20 mg/100 ml; F17.210 Nicotine dependence, cigarettes, uncomplicated; T42.1X5A Adverse effect of iminostilbenes, initial encounter; Y92.129 Unspecified place in nursing home as the place of occurrence of the external cause
CPT/HCPCS: 36415; 80048-TC; 80061-TC; 80076-TC; 80305; 81000-TC; 82533; 82565-TC; 82962-TC; 83735-TC; 83935-TC; 84100-TC; 84295-TC; 84300-TC; 84443-TC; 84550-TC; 85025-TC; 87081-TC; 90715; G0480

== ENCOUNTER 2019-07-31 09:30 | Outpatient (CLI) | payer MEDICARE, OTHER ==
[~2019-07-31 09:30] MED LIST: BENZ1TAB7 PO; DOCU100C36 PO; GABA-534 PO; HYDR-4384 PO; MELA3TAB63 PO; METF-440 PO
== END 2019-07-31 23:59 | disposition home or self-care (01) ==
LOC: MSC 09:30
PROVIDERS: ATTEND Anesthesiology
DX: M54.5 Low back pain (principal); M62.830 Muscle spasm of back; G89.4 Chronic pain syndrome; F20.9 Schizophrenia, unspecified; F11.20 Opioid dependence, uncomplicated